=== PATIENT | female | born 1945 | race African-American/Black ===

== ENCOUNTER 2019-03-05 09:42 | Inpatient (IN) ==
[2019-03-05 10:23] LABS: URINE SOURCE CLEAN CATCH
[2019-03-05 10:41] LABS: BILIRUBIN URINE NEGATIVE (NEGATIVE); BLOOD URINE TRACE (NEGATIVE); COLOR YELLOW; GLUCOSE URINE NEGATIVE (NEGATIVE); KETONE URINE NEGATIVE (NEGATIVE); LEUKOCYTES URINE LARGE (NEGATIVE); NITRITE URINE POSITIVE (NEGATIVE); PROTEIN URINE 30 mg/dL (NEGATIVE); SP GRAVITY URINE 1.012; TURBIDITY URINE HAZY (CLEAR); UROBILINOGEN URINE NORMAL (NORMAL)
[2019-03-05 10:43] LABS: UR EPITHELIAL CELLS <10 /HPF (<10); URINE BACTERIA 4+ /HPF; URINE RBC <10 /HPF (<10); URINE WBC TNTC /HPF (<10)
[2019-03-05 11:09] LABS: BASO# 0.03 X1000 (0.0-0.2); BASO% 0.2 % (0.0-0.8); EOS# 0.06 X1000 (0.0-0.7); EOS% 0.5 % (0.0-10.0); HEMATOCRIT 37.6 % (37.0-47.0); HEMOGLOBIN 11.8 g/dL (12.0-16.0); IMM GRAN# 0.03 X1000 (0.0-0.04); IMM GRAN% 0.2 % (0.0-0.5); LYMPH# 0.58 X1000 (1.2-3.4); LYMPH% 4.5 % (20.5-51.1); MCH 28.9 PG (27-31); MCHC 31.4 g/dL (33-37); MCV 91.9 FL (81-99); MONO# 0.17 X1000 (0.11-0.59); MONO% 1.3 % (1.7-9.3); MPV 12.3 FL (7.4-10.4); NEUT# 11.89 X1000 (1.4-6.5); NEUT% 93.3 % (42.2-75.2); PLT 173 X1000 (130-400); RBC 4.09 XMIL (4.2-5.4); WBC 12.76 X1000 (4.8-10.8)
--- NOTE | 2019-03-05 11:28 | EKG Report ---
Test Performed on : 03/05/2019 09:55:40 AM Test Reason : altered mental status Blood Pressure : / mmHG Vent. Rate : 073 BPM Atrial Rate : 073 BPM P-R Int : 126 ms QRS Dur : 090 ms QT Int : 346 ms P-R-T Axes : 052 -22 007 degrees QTc Int : 381 ms Sinus rhythm. with marked sinus arrhythmia. Otherwise normal ECG When compared with ECG of 18-SEP-2013 05:28, QT has shortened Unconfirmed Result
[2019-03-05 11:39] LABS: AGAP 14; ALBUMIN 3.5 g/dL (3.5-5.0); ALKALINE PHOSPHATASE 77 U/L (32-104); AMYLASE 65 U/L (20-200); BUN 13 mg/dL (8-22); CALCIUM 8.8 mg/dL (8.8-10.2); CHLORIDE 108 mmol/L (98-107); COSMO 287; CREATININE 0.8 mg/dL (0.5-0.9); ESTIMATED GFR > 60; GLUCOSE 97 mg/dL (70-104); GOT 27 U/L (10-30); GPT 18 U/L (10-36); LIPASE 58 U/L (13-60); POTASSIUM 3.5 mmol/L (3.5-5.1); SODIUM 144 mmol/L (136-145); TCO2 22 mmol/L (25-35); TOTAL BILIRUBIN 0.41 mg/dL (0.20-1.00); TOTAL PROTEIN 6.9 g/dL (6.3-8.3)
--- NOTE | 2019-03-05 11:58 | Diag Imaging Result Doc PS360 ---
EXAM: CHEST-1 VIEW 03/05/2019 HISTORY: sepsis protocol TECHNIQUE: AP upright at 1142 COMMENT: There is cardiomegaly. There is minimal lingular atelectasis. Compared to 09/18/2013 there has been no significant change in the appearance of the chest. IMPRESSION: Minimal lingular atelectasis. Electronically signed by George Brunner 03/05/2019 11:56 AM
--- NOTE | 2019-03-05 12:06 | Diag Imaging Result Doc PS360 ---
CT HEAD W/O CONTRAST - 03/05/2019 INDICATION: altered mental status COMPARISON: 09/18/2013 FINDINGS: There is a prominent hypodensity in the left periventricular cerebral white matter. This has worsened since the prior exam and is likely chronic. Otherwise stable minimal periventricular white matter chronic microvascular disease. No intracranial mass or hemorrhage. The skull is intact. The sinuses are clear. There is dense vascular disease of the carotid siphons bilaterally. IMPRESSION: Clearly chronic and some age indeterminate deep cerebral white matter hypodensity. If further evaluation desired, then a brain MRI is recommended. This exam was performed using automated exposure control, adjustment of mA or kV according to patient size, and/or use of iterative reconstruction technique Electronically signed by Dorian Red 03/05/2019 12:03 PM
[2019-03-05] MEDS ORDERED: ROCEPHIN 1 GM in NS 50 ML IV ONE (12:13)
[2019-03-05] MEDS ORDERED: TYLENOL PO ONE (12:19)
--- NOTE | 2019-03-05 12:25 | PROVIDER DOCUMENTATION ---
This chart was entered by Anaid Lizama Scribe, acting as scribe for Arley Khna MD. HPI-General Adult - General Chief Complaint: Nausea/Vomiting Stated Complaint: AMS/ NAUSEA Time Seen by Provider: 03/05/19 09:53 Source: patient, EMS Allergies/Adverse Reactions: Patient Allergies Allergy/AdvReac Type Severity Reaction Status Date / Time No Known Allergies Allergy Verified 09/18/13 05:55 Home Medications: Home Medication List Medication Instructions Recorded Confirmed Last Taken Type ATORVAstatin [Lipitor] 10 mg PO HS #0 tablet 09/20/13 Unknown Rx Aspirin 325 mg PO DAILY #0 tablet 09/20/13 Unknown Rx LISINOpril [Prinivil] 20 mg PO DAILY #0 tablet 09/20/13 Unknown Rx Lisinopril 20 mg PO DAILY #0 tablet 09/20/13 Unknown Rx Metformin [Glucophage] 500 mg PO BID CC #0 tablet 09/20/13 Unknown Rx - History of Present Illness -Gen Adult Nature of Presenting Problems: 73 yof presents to the ed with c/o n/v and confusion this am. pt was brought to ed via ems and once seen in ed pt was a/o x3 and no distress. 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 pt is poor historian Location of Pain/Injury: reports: abdomen Quality of Pain: reports: cramping Severity: reports: moderate Onset/Duration: reports: this morning Timing: reports: gone now Context/Activities at Onset: reports: moderate activity Modifying Factors: improves with: nothing Associated Symptoms: reports: nausea, vomiting (x2), other (confusion). denies: back/neck pain, chest pain, cough, dizziness, headaches, shortness of breath Similar Symptoms Previously?: No Recently seen or treated by another doctor?: No Review of Systems - Adult - REVIEW OF SYSTEMS - ADULT ROS:: limited per condition (pt is poor historian) Constitutional: denies: chills, fever Eyes: reports: no symptoms reported Ears, Nose, Mouth & Throat: reports: no symptoms reported Cardiovascular: denies: chest pain, palpitations Respiratory: denies: cough, pleurisy, shortness of breath Gastrointestinal: reports: see HPI, abdominal pain, nausea, vomiting. denies: diarrhea Genitourinary: reports: no symptoms reported Musculoskeletal: denies: back pain, neck pain Integumentary: reports: no symptoms reported Neurological: reports: see HPI, slurred speech (baseline), other (mild confusion). denies: dizziness/vertigo, headache/migraines, syncope, tremors Psychiatric: reports: no symptoms reported Endocrine: reports: no symptoms reported Hematologic/Lymphatic: reports: no symptoms reported Allergic/Immunologic: reports: no symptoms reported All Other Systems: Reviewed and Negative Past History - Adult - PAST MEDICAL HISTORY-ADULT Review of Records: reports: Nursing Assessment Review, Medications Reviewed Major Childhood Illnesses: reports: denies history Cardiovascular: reports: HTN Respiratory: reports: denies history Gastrointestinal: reports: denies history Obstetrical/Gynecological: reports: denies history Genitourinary: reports: denies history Musculoskeletal: reports: denies history Hand Dominance: Right Handed Neurological: reports: CVA, stroke deficits (speech), TIA Endocrine/Immune: reports: Diabetes Diabetes Type: Type 2 Diabetes controlled by:: Diet Other Conditions: reports: denies history - PRIOR SURGERIES/PROCEDURES Surgical/Procedure History: reports: appendectomy, cholecystectomy, BTL - IMMUNIZATION STATUS Childhood Immunizations: See Nurse Assessment Flu Vaccine: See Nurse Assessment - FAMILY HISTORY Family History: reviewed, not pertinent - SOCIAL HISTORY Smoking: denies Substance Use: denies Living Situation: care facility Physical Exam-General - PHYSICAL EXAM-ADULT Initial Vital Signs Reviewed: Yes - CONSTITUTIONAL General Appearance: alert - EYES Eyes: PERRL/EOMI, pink conjunctivae - HEAD, EARS, NOSE, MOUTH & THROAT HENMT: moist mucous membranes - NECK Neck: non-tender, full range of motion, supple, normal inspection - RESPIRATORY Respiratory: chest non-tender, lungs clear, normal breath sounds, increased rate (26) - CARDIOVASCULAR Cardiovascular: normal peripheral pulses, no edema, tachycardia (103) - GASTROINTESTINAL (ABDOMEN) Abdominal Exam: normal bowel sounds, non tender, soft - LYMPHATIC Lymphatic: no adenopathy - MUSCULOSKELETAL Back Exam: normal inspection, no CVA tenderness, no vertebral tenderness Extremity: normal range of motion, non-tender, normal gait, normal inspection, no pedal edema, no calf tenderness, normal capillary refill - SKIN Integumentary: normal color, normal turgor, warm/dry - NEUROLOGIC Neurologic: grossly normal - PSYCHIATRIC Psych/Mental Status: normal mood/affect, oriented x 3 (but pt is poor historian) Progress - PLAN OF CARE/RESULTS Progress/Plan/Lab Results: Vital Signs - 8 hr 03/05/19 09:55 Temperature 98.8 F Pulse Rate 90 Respiratory Rate 23 Blood Pressure 141/76 O2 Sat by Pulse Oximetry 97 Laboratory Results - last 24 hr 03/05/19 09:53 POC Glucose 135 H Orders Category Date Time Status Nursing- Obtain EKG ONCE Care 03/05/19 10:[address] HEAD W/O CONTRAST [CT] Stat Exams 03/05/19 10:01 Ordered AMYLASE [CHEM] Stat Lab 03/05/19 10:01 Uncollected CBC WITH ELECTRONIC DIFF [HEME] Stat Lab 03/05/19 10:01 Uncollected COMPREHENSIVE METABOLIC PANEL [CHEM] Stat Lab 03/05/19 10:01 Uncollected LIPASE [CHEM] Stat Lab 03/05/19 10:01 Uncollected TROPONIN T Stat Lab 03/05/19 10:03 Uncollected URINALYSIS [URINALYSIS] Stat Lab 03/05/19 10:12 Ordered EKG [EKG] Stat Ther 03/05/19 10:01 Ordered Result Diagrams: 03/05/19 10:48 03/05/19 10:48 - REASSESSMENT Reassessment #1 Time Reassessed: 11:58 Status: unchanged Reassessment #2 Time Reassessed: 12:30 Status: worsening Reassessment Comment: pt now has a fever - EKG 1 Time of EKG reading by physician:: 09:55 EKG Read and Signed by:: Arley Khan EKG Interpretation (*Must complete 3 of following elements*): Normal Rate: 73 Rhythm: sinus rhythm with marked sinus arrhythmia [place]: normal QRS: normal MS Interval: normal ST Wave: normal - XRAY 1 XRAY: Bilateral XRAY Study: Chest Impression: See EMR Report (EXAM: CHEST-1 VIEW 03/05/2019 HISTORY: sepsis protocol TECHNIQUE: AP upright at 1142 COMMENT: There is cardiomegaly. There is minimal lingular atelectasis. Compared to 09/18/2013 there has been no significant change in the appearance of the chest. IMPRESSION: Minimal lingular atelectasis. Electronically signed by George Brunner 03/05/2019 11:56 AM 03/05/19 1156 Interpreting Physician: George Brunner MD Dictated Date/Time: 03/05/19 1155 cc: Arley Khan MD; Tomy Segovia MD) - CT/MRI 1 CT Study: Head Impression: See EMR Report (CT HEAD W/O CONTRAST - 03/05/2019 INDICATION: altered mental status COMPARISON: 09/18/2013 FINDINGS: There is a prominent hypodensity in the left periventricular cerebral white matter. This has worsened since the prior exam and is likely chronic. Otherwise stable minimal periv entricular white matter chronic microvascular disease. No intracranial mass or hemorrhage. The skull is intact. The sinuses are clear. There is dense vascular disease of the carotid siphons bilaterally. IMPRESSION: Clearly chronic and some age indeterminate deep cerebral white matter hypodensity. If further evaluation desired, then a brain MRI is recommended. This exam was performed using automated exposure control, adjustment of mA or kV according to patient size, and/or use of iterative reconstruction technique Electronically signed by Dorian Red 03/05/2019 12:03 PM 03/05/19 1203 Interpreting Physician: Dorian Red MD Dictated Date/Time: 03/05/19 1201 cc: Arley Pardo MD; Tomy Segovia MD) - CONSULTS/PCP/HOSPITALIST Notification #1 *Consult/PCP/Hospitalist*: hospitalist Time Discussed: 12:30 Consult Disposition: Admit Departure - Departure Date of Disposition Decision: 03/05/19 Time of Disposition Decision: 12:32 DIAGNOSIS: UTI (urinary tract infection), Altered mental status Disposition: ADMITTED INPATIENT 09 Certified Medical Emergency: Emergent Condition: Fair Referrals and Follow-Ups: Tomy Segovia MD [Primary Care Provider] - - Critical Care Note This patient required my direct & personal management of CC.: Yes Total Time (mins): 32 Critical Care Statement: This patient required my direct personal management to treat or rule out processes, the absence of which, could potentiallly result in sudden, clinically significant life or limb threatening deterioration. Attestation - Physician/ MADDI Attestation Patient care was provided by Advanced Practice Provider:: No The physician spent face to face time with patient:: Yes Advanced Practice Provider documentation review:: Supervising physician onsite and consulted in the evaluation and care of this patient. The physician did have a face to face encounter with the patient. This chart was documented by the indicated scribe, (Anaid Lizama Scribe) and accurately reflects the services I performed and decisions made by me, Arley Yang MD, as attested by the provider's signature.
[2019-03-05 12:34] LABS: INR 0.89; PROTIME 12.8 Seconds (11.0-16.0)
--- NOTE | 2019-03-05 13:53 | Diag Imaging Result Doc PS360 ---
EXAM: KNEE 3 VIEWS RIGHT 03/05/2019 HISTORY: r/o septic knee TECHNIQUE: Right knee three views COMMENT: There is narrowing of the lateral joint compartment and sclerosis and some irregularity of the articular surfaces. There is valgus deformity of the knee. There is marked patellofemoral arthropathy. There is a suprapatellar effusion. No evidence of erosion or periosteal reaction is present. There is subcutaneous edema over the lower leg. IMPRESSION: Osteoarthritis. Effusion. Soft tissue edema. Electronically signed by George Brunner 03/05/2019 1:51 PM
--- NOTE | 2019-03-05 14:41 | HISTORY AND PHYSICAL ---
PRIMARY CARE PROVIDER: Dr. Segovia. CHIEF COMPLAINT: Per family in the room, the patient was having am upset stomach this morning with complaint of a cough. HISTORY OF PRESENT ILLNESS: Ms. Martinez is a 73-year-old Afro-[place] female, who had a CVA several years ago. Her speech is still affected, but no other deficits. Hypertension, borderline diabetes. She checks her sugar twice a day, but does not take anything for them. She continues to work at [email or web address] per the daughter's report at the bedside. Her brother stated that she was complaining of stomach pain this morning. She took some Pepto-Bismol. She went to work at [email or web address]. Per their report, she continued to get off the line to go urinate. She was found vomiting in the bathroom. She felt feverish and was diaphoretic. She was brought into the ED where she was found to have a urinary tract infection. Her chest x-ray showed atelectasis. She was initiated on IV antibiotics. However, upon physical examination, her right knee is swollen and hot to the touch. We will check a knee x-ray to rule out any septic arthritis, along with a uric acid level for possible gout, currently pending her lactate level. The patient is sleepy in the room. She will wake up for a brief period of time to answer some questions. She does know her name and date of , and that she is in the hospital, and then she will fall back asleep. Per daughters at bedside, this is definitely not her norm. We will admit her to the medical telemetry floor. Continue with IV fluids and IV antibiotics. REVIEW OF SYSTEMS: A 14 point review of systems completely negative, except for those mentioned in HPI. The patient was hard to get information out of; most was gotten from the ER and daughters at bedside. 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 PAST SURGICAL HISTORY: 1. Tubal ligation. 2. Cholecystectomy. FAMILY HISTORY: Coronary artery disease and stroke. SOCIAL HISTORY: She lives alone. She continues to work at [email or web address]. No alcohol, tobacco, or illicit drug use. HOME MEDICATIONS: see med rec PHYSICAL EXAMINATION: VITAL SIGNS: Temperature is 101.5 degrees, heart rate 89, respirations 20, blood pressure 160/55, O2 94% on room air. GENERAL: Ms. Martinez is a 73-year-old female, who is lying on the stretcher in no acute distress. She is somewhat sleepy. She does arouse easily. She will briefly answer questions and drift off back to sleep. HEENT: Atraumatic, normocephalic. PERRL. NECK: Supple. Trachea midline. CARDIOVASCULAR: S1, S2 appreciated. No murmurs, gallops, rubs noted. RESPIRATORY: Lung sounds clear bilaterally. GI: Soft, nontender, nondistended. Positive bowel sounds 4 quadrants. EXTREMITIES: Shows a right swollen knee that is warm to the touch. No lower extremity edema. SKIN: Appears to be warm, dry, and intact. DIAGNOSTIC DATA: Head CT shows chronic and some age indeterminate deep cerebral white matter hypodensity. Further evaluation may be recommended to follow-up MRI. Chest x- ray: Minimal lingular atelectasis. Knee x-ray on the right is currently pending. LABORATORY DATA: White count 12, hemoglobin and hematocrit 11 and 37, platelet count is 173. Sodium 144, potassium 3.5. BUN 13, creatinine 0.8, blood glucose is 135. Troponin less than 0.010. Lactate is currently pending. Urinalysis: Too numerous to count WBCs, large leukocytes, positive nitrates. ASSESSMENT AND PLAN: 1. Metabolic encephalopathy secondary to urinary tract infection. We will continue with neuro checks. We will treat her underlying infection. 2. Urinary tract infection. We will await urine culture. Continue with intravenous antibiotics. 3. Rule out septic knee or gouty arthritis in the right knee. Currently pending uric acid and knee x-ray. 4. Hypertension. 5. Borderline diabetes. Per family report, she is not taking anything for her diabetes. However, her home medication record shows she takes metformin. We will check a hemoglobin A1c. 6. History of cerebrovascular accident in the past that affected her speech. No other deficits noted. 7. Further recommendation to follow physician evaluation, laboratory and diagnostic data. Dictated by KURT Rosenbaum for Saskia Tong MD cc: MD Tomy Chavez MD I performed a face to face encounter on the patient. I reviewed all labs and imaging on the patient. I agree with the H&P as dictated. is a 73 year old female with a history of DM type 2 and hypertension who presented to the ER with a chief complaint of weakness and lethargy. On exam, the patient was noted to be lethargic and unable to answer any questions. After further evaluation, the patient was noted to have a urinary tract infection. Blood and urine cultures have been obtained. Will start IV fluid hydration and start the patient on Rocephin. The patient also has a large effusion on her right knee. She has a history of routine steroid knee injections for arthritis. Will consult Orthopedic surgery to perform an arthrocentesis to rule out the possibility of a septic knee joint. RICHARD
[2019-03-05] MEDS ORDERED: ZOFRAN IV PRN (14:49)
[2019-03-05] MEDS: NS 1,000 ML IV SCH (16:08)
[2019-03-05] MEDS ORDERED: LIPITOR PO SCH (21:00)
[2019-03-05] MEDS ORDERED: NEURONTIN PO SCH (21:00)
[2019-03-05] MEDS ORDERED: PRAVACHOL PO SCH (21:00)
[2019-03-06] MEDS: NS 1,000 ML IV SCH ×2 (04:09→17:08)
[2019-03-06 05:35] LABS: BASO# 0.03 X1000 (0.0-0.2); BASO% 0.2 % (0.0-0.8); EOS# 0.08 X1000 (0.0-0.7); EOS% 0.6 % (0.0-10.0); HEMATOCRIT 30.7 % (37.0-47.0); HEMOGLOBIN 9.9 g/dL (12.0-16.0); IMM GRAN# 0.02 X1000 (0.0-0.04); IMM GRAN% 0.2 % (0.0-0.5); LYMPH# 1.36 X1000 (1.2-3.4); LYMPH% 10.5 % (20.5-51.1); MCH 29.5 PG (27-31); MCHC 32.2 g/dL (33-37); MCV 91.4 FL (81-99); MONO# 0.77 X1000 (0.11-0.59); MONO% 5.9 % (1.7-9.3); MPV 12.2 FL (7.4-10.4); NEUT# 10.74 X1000 (1.4-6.5); NEUT% 82.6 % (42.2-75.2); PLT 163 X1000 (130-400); RBC 3.36 XMIL (4.2-5.4); RDW 15.9 % (11.5-14.5)
[2019-03-06 05:57] LABS: AGAP 10; ALB/GLOB RATIO 1.2; ALKALINE PHOSPHATASE 95 U/L (32-104); BUN 13 mg/dL (8-22); CALCIUM 7.8 mg/dL (8.8-10.2); CHLORIDE 110 mmol/L (98-107); COSMO 284; CREATININE 0.9 mg/dL (0.5-0.9); ESTIMATED GFR > 60; GLUCOSE 85 mg/dL (70-104); GOT 143 U/L (10-30); GPT 135 U/L (10-36); MAGNESIUM 1.8 mg/dL (1.5-2.7); POTASSIUM 3.3 mmol/L (3.5-5.1); SODIUM 143 mmol/L (136-145); TCO2 23 mmol/L (25-35); TOTAL BILIRUBIN 0.35 mg/dL (0.20-1.00); TOTAL PROTEIN 5.5 g/dL (6.3-8.3)
[2019-03-06] MEDS ORDERED: KLOR-CON PO ONE (06:43)
[2019-03-06] MEDS: PRINIVIL PO SCH (09:38)
[2019-03-06] MEDS: LOVENOX SUBQ SCH (09:39)
[2019-03-06] MEDS: ASPIRIN EC PO SCH (09:39)
[2019-03-06] MEDS: NORVASC PO SCH (09:39)
[2019-03-06] MEDS: NEURONTIN PO SCH ×2 (10:17→21:15)
[2019-03-06] MEDS: GLUCOPHAGE PO SCH ×2 (10:17→17:07)
[2019-03-06] MEDS: ROCEPHIN 1 GM in NS 50 ML IV SCH (12:06)
--- NOTE | 2019-03-06 14:42 | PROGRESS NOTE ---
DATE: 03/06/2019 SUBJECTIVE: The patient is awake and alert. She states that she feels a lot better. OBJECTIVE: Vital Signs: Temperature 98.6 degrees, blood pressure 136/52, heart rate 67, respirations 23, O2 saturation 93% on room air. General: This is a chronically ill-appearing, elderly female, lying on the stretcher in no acute distress. Heart: S1, S2 normal. Regular rate and rhythm. Lungs: Clear to auscultation bilaterally. Abdomen: Positive bowel sounds. Soft, nontender, nondistended. Extremities: There is an effusion involving the right knee. It is swollen and warm to touch. Neurologic: The patient is alert and oriented x4. LABS: White blood cell count 13, hemoglobin 9.9, hematocrit 30, platelets 163. Sodium 143, potassium 3.3, chloride 110, CO2 23. BUN 13, creatinine 0.9, glucose 85, AST 143, ALT 135, albumin 3. ASSESSMENT AND PLAN: 1. Metabolic encephalopathy. Improved. The patient has a urinary tract infection which is being treated. We will continue to monitor closely. 2. Urinary tract infection. The urine culture is growing gram-negative rods. Continue with antibiotic therapy. Will await the final culture results. 3. Bacteremia secondary to gram-negative rods. We will continue with antibiotic therapy and follow up on the culture results. We will consult with Infectious Disease. 4. Right knee effusion. We will consult with Orthopedic Surgery for further recommendations. 5. Diabetes mellitus type 2. Continue on sliding scale insulin and metformin. 6. Diabetic neuropathy. Continue on Neurontin. 7. Deep vein thrombosis prophylaxis. Continue on Lovenox. cc: Saskia Tong MD
[2019-03-06 14:50] LABS: BODY FLUID SOURCE SYNOVIAL FLUID; WBC BF 1305 /cumm
[2019-03-06 15:13] LABS: MONOS 74 %; POLYS 26 %
--- NOTE | 2019-03-06 16:16 | ORTHOPAEDICS CONSULTATION ---
DATE: 03/06/2019 CHIEF COMPLAINT: Patient complains of right knee pain. HISTORY OF PRESENT ILLNESS: Ms. Martinez is a 73-year-old female who recently had swelling in her right knee. She reports the swelling comes and goes over the past couple of months. She reports an episode of vomiting in the bathroom, and she felt like she was having a fever and got hot and sweaty. She was brought to the emergency department where they found a urinary tract infection. Chest x-ray shows atelectasis. They started her on IV antibiotics and consult to orthopedics for her right knee swelling. REVIEW OF SYSTEMS: Ten-point review of systems performed. Pertinent positives listed in HPI. PAST MEDICAL HISTORY: Hypertension, CVA, borderline diabetes, DJD of the right knee. PAST SURGICAL HISTORY: Tubal ligation, cholecystectomy. FAMILY HISTORY: CAD and stroke. SOCIAL HISTORY: She lives alone and continues to work. She denies alcohol, tobacco, or drug use. PHYSICAL EXAMINATION: Vital Signs: Pulse rate 75, respiratory rate 20, blood pressure 155/63, oxygen saturation 96%. Previous temperature was 101.5 degrees. General: Patient is awake, alert, and lying in bed comfortably. She is not in any acute distress. HEENT: Head is atraumatic, normocephalic. Neck: Supple. Cardiovascular: Regular rate and rhythm. Chest: There is equal chest expansion rise and fall. GI: Abdomen is soft, nontender. Extremities: Right lower extremity. Right knee has +2 effusion that is warm to the touch. There is negative Homans sign. There is good range of motion of right knee. There is some medial joint line tenderness. There are good pedal pulses. There is no redness at the time. DIAGNOSTICS: X-ray of the right knee shows DJD of the knee with effusion but is otherwise normal. LABORATORY DATA: White blood cells 13, red blood cell 3.36, hemoglobin 9.9, hematocrit 30.7, platelets 163,000. INR 0.9. Sodium 143, potassium 3.3, chloride 110, BUN 13, creatinine 0.9, glucose 85. Previous uric acid is 4.9. Liver enzymes: AST 143, ALT 135. Urine shows positive urinary tract infection. ASSESSMENT: Degenerative joint disease of the right knee with effusion. PLAN: We have aspirated roughly 50 mL of synovial clear fluid. We will go ahead and send it off to lab since she has had a fever and high white count. We will await the results and treat accordingly. Dictated by KURT Stephens for Conor Summers MD cc: KURT Stephens MD MTDD
[2019-03-06] MEDS: TYLENOL PO PRN (21:14)
[2019-03-07 07:44] LABS: BASO# 0.03 X1000 (0.0-0.2); BASO% 0.3 % (0.0-0.8); EOS# 0.08 X1000 (0.0-0.7); EOS% 0.8 % (0.0-10.0); HEMATOCRIT 37.8 % (37.0-47.0); HEMOGLOBIN 12.1 g/dL (12.0-16.0); LYMPH# 1.13 X1000 (1.2-3.4); LYMPH% 11.3 % (20.5-51.1); MCH 29.4 PG (27-31); MONO# 0.66 X1000 (0.11-0.59); MONO% 6.6 % (1.7-9.3); MPV 12.3 FL (7.4-10.4); NEUT# 8.14 X1000 (1.4-6.5); PLT 149 X1000 (130-400); RBC 4.11 XMIL (4.2-5.4); WBC 10.04 X1000 (4.8-10.8)
[2019-03-07 08:19] LABS: AGAP 12; ALB/GLOB RATIO 0.8; ALBUMIN 2.9 g/dL (3.5-5.0); ALKALINE PHOSPHATASE 90 U/L (32-104); BUN 7 mg/dL (8-22); CALCIUM 8.6 mg/dL (8.8-10.2); CHLORIDE 110 mmol/L (98-107); COSMO 285; CREATININE 0.6 mg/dL (0.5-0.9); ESTIMATED GFR > 60; GLUCOSE 135 mg/dL (70-104); GOT 46 U/L (10-30); GPT 85 U/L (10-36); SODIUM 143 mmol/L (136-145); TCO2 21 mmol/L (25-35); TOTAL BILIRUBIN 0.27 mg/dL (0.20-1.00); TOTAL PROTEIN 6.6 g/dL (6.3-8.3)
[2019-03-07] MEDS: NORVASC PO SCH (09:56)
[2019-03-07] MEDS: PRINIVIL PO SCH (09:56)
[2019-03-07] MEDS: ASPIRIN EC PO SCH (09:56)
[2019-03-07] MEDS: NEURONTIN PO SCH ×2 (09:56→21:06)
[2019-03-07] MEDS: LOVENOX SUBQ SCH (09:56)
[2019-03-07] MEDS: GLUCOPHAGE PO SCH ×2 (09:57→17:44)
[2019-03-07 11:10] LABS: HEPATITIS PROFILE ACUTE SEE COMMENTS
--- NOTE | 2019-03-07 11:23 | ORTHOPAEDICS PROGRESS NOTE ---
DATE: 03/07/2019 SUBJECTIVE: The patient is a 73-year-old female who is currently resting comfortably. She was admitted to the hospital yesterday for a UTI. She also had swelling and discomfort in her right knee, as well as an effusion. Orthopedic consultation was requested to rule out septic joint. The patient does have a history of arthritis, and sees Dr. Giles in the office, and has received periodic injections for underlying osteoarthritis. OBJECTIVE: The patient's right knee contusion with an effusion. She is able to actively flex and extend her knee. Compartments are soft. She has less discomfort today. LABORATORY DATA: Her Gram stain was negative. Cultures are pending. IMPRESSION: Right knee pain with effusion with underlying osteoarthritis. PLAN: At this point, will await the culture results to rule out septic joint. Clinical suspicion is low for a septic joint at this point. If she has negative cultures, would consider intra- articular corticosteroid injections. The patient understands, and all questions were answered. cc: Conor Summers MD
[2019-03-07] MEDS: NS 1,000 ML IV SCH (11:54)
[2019-03-07] MEDS: ROCEPHIN 1 GM in NS 50 ML IV SCH (11:54)
--- NOTE | 2019-03-07 12:50 | PROGRESS NOTE ---
DATE: 03/07/2019 SUBJECTIVE: The patient is feeling better. Still complains of some right knee pain, but has improved. OBJECTIVE: Vital signs: Temperature is 97.9 degrees, heart rate 72, respirations 16, blood pressure 149/49, and O2 is 96%. General: Ms. Martinez is a pleasant 73-year-old female who is lying on the bed in no acute distress. Daughter is at bedside. HEENT: Atraumatic and normocephalic. PERRLA. Neck: Supple. Trachea midline. CV: S1, S2 appreciated. No murmurs, gallops, or rubs noted. Lungs: Sounds are clear bilaterally. Abdomen: Soft, nontender, and nondistended. Positive bowel sounds 4 quadrants. Extremities: Improvement to the effusion to her right knee. Neurologic: No focal deficits noted. DIAGNOSTIC DATA: None. PROCEDURES: She had an aspiration of roughly 50 mL of synovial clear fluid performed by Dr. Summers currently pending microbiology. LABORATORY DATA: White count 10, hemoglobin and hematocrit 12 and 37, and platelet count 149,000. Chemistry: Sodium 143, potassium 4.0, BUN 7, creatinine 0.6. Blood glucose 135, AST 46, and ALT 85. Hepatitis panel nonreactive. ASSESSMENT AND PLAN: 1. Metabolic encephalopathy secondary to UTI and bacteremia improved. Resolved. 2. Escherichia coli urinary tract infection. We will continue with IV antibiotics. 3. Bacteremia secondary to E.coli. We will continue with IV antibiotic therapy. 4. Right knee effusion. Orthopedics did a joint aspiration where they removed 50 mL of synovial fluid that was clear. Continue with PT. 5. Elevated liver function tests. They are currently trending down. Her hepatitis profile was nonreactive. 6. Diabetes mellitus type 2. We will continue her sliding scale and metformin. 7. Diabetic neuropathy. Continue Neurontin. 8. DVT prophylaxis on Lovenox. 9. Further recommendations to follow physician evaluation, laboratory and diagnostic data. 10. Disposition: Pending final cultures. Dictated by KURT Rosenbaum for Saskia Tong MD cc: Saskia Tong MD I performed a face to face encounter on the patient. I reviewed all labs on the patient. I agree with the progress note as dictated. The patient is awake and oriented x 4. She is sitting up in the chair. The blood and urine cultures are growing E.coli which is pansensitive. Will continue on IV rocephin. PT is also working with the patient on strength. MTDD
[2019-03-08 07:34] LABS: BASO# 0.03 X1000 (0.0-0.2); BASO% 0.4 % (0.0-0.8); EOS# 0.13 X1000 (0.0-0.7); EOS% 1.9 % (0.0-10.0); HEMATOCRIT 34.5 % (37.0-47.0); HEMOGLOBIN 11.2 g/dL (12.0-16.0); IMM GRAN# 0.02 X1000 (0.0-0.04); IMM GRAN% 0.3 % (0.0-0.5); LYMPH# 1.53 X1000 (1.2-3.4); LYMPH% 22.5 % (20.5-51.1); MCH 29.2 PG (27-31); MCHC 32.5 g/dL (33-37); MCV 90.1 FL (81-99); MONO% 8.8 % (1.7-9.3); MPV 12.1 FL (7.4-10.4); NEUT# 4.48 X1000 (1.4-6.5); NEUT% 66.1 % (42.2-75.2); PLT 168 X1000 (130-400); RBC 3.83 XMIL (4.2-5.4); RDW 15.1 % (11.5-14.5); WBC 6.79 X1000 (4.8-10.8)
[2019-03-08 07:57] LABS: AGAP 13; ALB/GLOB RATIO 0.9; ALKALINE PHOSPHATASE 76 U/L (32-104); BUN 5 mg/dL (8-22); CALCIUM 8.1 mg/dL (8.8-10.2); CHLORIDE 107 mmol/L (98-107); COSMO 280; CREATININE 0.6 mg/dL (0.5-0.9); ESTIMATED GFR > 60; GLUCOSE 91 mg/dL (70-104); GOT 21 U/L (10-30); GPT 58 U/L (10-36); POTASSIUM 3.4 mmol/L (3.5-5.1); SODIUM 142 mmol/L (136-145); TCO2 22 mmol/L (25-35); TOTAL BILIRUBIN 0.23 mg/dL (0.20-1.00); TOTAL PROTEIN 6.2 g/dL (6.3-8.3)
[2019-03-08] MEDS: GLUCOPHAGE PO SCH ×2 (10:08→18:09)
[2019-03-08] MEDS: LOVENOX SUBQ SCH (10:08)
[2019-03-08] MEDS: ASPIRIN EC PO SCH (10:08)
[2019-03-08] MEDS: PRINIVIL PO SCH (10:08)
[2019-03-08] MEDS: NEURONTIN PO SCH ×2 (10:08→20:01)
[2019-03-08] MEDS: NORVASC PO SCH (10:08)
--- NOTE | 2019-03-08 12:17 | PROGRESS NOTE ---
DATE: 03/08/2019 SUBJECTIVE: The patient is resting comfortably in bed. No acute events noted overnight. She states that she feels fine. She would like to go home. OBJECTIVE: Vital Signs: Temperature 97.9 degrees, blood pressure 155/64, heart rate 66, respirations 23, and O2 saturation 98% on room air. General: This is an elderly female sitting at the edge of the bed in no acute distress. Heart: S1, S2 normal. Regular rate and rhythm. Lungs: Clear to auscultation bilaterally. No wheezing. No rales. No rhonchi. Abdomen: Positive bowel sounds. Soft, nontender, nondistended. Extremities: No edema. No cyanosis. Neurologic: The patient is alert and oriented x3. LABORATORY: Hemoglobin 11, hematocrit 34, and platelets 168,000. Sodium 142, potassium 3.4, chloride 107, CO2 22, BUN 5, creatinine 0.6, glucose 108, and albumin 3. ASSESSMENT AND PLAN: 1. Metabolic encephalopathy. Resolved. 2. Urinary tract infection secondary to Escherichia coli. Continue with antibiotic therapy. 3. Bacteremia secondary to Escherichia coli. Repeat blood cultures are currently pending. Continue with antibiotic therapy. We will consult ID for further recommendations regarding length of antibiotic therapy. 4. Right knee effusion. Improved. Continue with physical therapy. 5. Diabetes mellitus type 2. Continue on metformin. 6. Diabetic neuropathy. Continue on Neurontin. 7. Deep vein thrombosis prophylaxis. Continue on Lovenox. 8. Disposition. We will plan to discharge the patient home once cleared by ID. cc: MD RICHARD Chavez
--- NOTE | 2019-03-08 13:55 | ORTHOPAEDICS PROGRESS NOTE ---
DATE: 03/08/2019 SUBJECTIVE: The patient is a pleasant 73-year-old female who was admitted to the hospital with metabolic encephalopathy secondary to UTI bacteremia. She underwent aspiration of a knee to rule out a septic knee the culture results were negative. She is feeling better with regards to her knee. PHYSICAL EXAMINATION: The patient's right knee does have mild effusion. She has good range of motion of the knees, is able to actively flex and extend her knee. compartments are soft. There is no increased warmth or erythema. She has some tenderness palpation along the joint line. LABS: WBC 10.04, hemoglobin is 12.1, hematocrit is 37.8. Platelets 149,000. Culture of synovial fluid of the right knee was negative. IMPRESSION: Osteoarthritis right knee. PLAN: Discussed treatment options with the patient. At this time she says her pain has improved and she is doing well. We will treat her symptomatically at this time. She was instructed to follow up with Dr. Giles who she sees in the office for longstanding arthritis for knee in the future if she has recurrent pain and discomfort. All of her questions were answered. She is stable from an orthopedic standpoint. We will be available if needed. cc: Conor Summers MD
[2019-03-08] MEDS: ROCEPHIN 1 GM in NS 50 ML IV SCH (15:18)
[2019-03-09 08:08] LABS: HEMATOCRIT 37.1 % (37.0-47.0); HEMOGLOBIN 11.9 g/dL (12.0-16.0); MCH 29.4 PG (27-31); MCHC 32.1 g/dL (33-37); MCV 91.6 FL (81-99); MPV 12.1 FL (7.4-10.4); RBC 4.05 XMIL (4.2-5.4); RDW 15.1 % (11.5-14.5); WBC 5.86 X1000 (4.8-10.8)
[2019-03-09 08:33] LABS: AGAP 13; BUN 5 mg/dL (8-22); CALCIUM 8.8 mg/dL (8.8-10.2); CHLORIDE 108 mmol/L (98-107); COSMO 283; CREATININE 0.7 mg/dL (0.5-0.9); ESTIMATED GFR > 60; GLUCOSE 85 mg/dL (70-104); POTASSIUM 3.5 mmol/L (3.5-5.1); SODIUM 144 mmol/L (136-145); TCO2 23 mmol/L (25-35)
[2019-03-09] MEDS: NEURONTIN PO SCH ×3 (09:08→22:26)
[2019-03-09] MEDS: LOVENOX SUBQ SCH (09:08)
[2019-03-09] MEDS: GLUCOPHAGE PO SCH ×2 (09:08→17:22)
[2019-03-09] MEDS: ASPIRIN EC PO SCH (09:08)
[2019-03-09] MEDS: NORVASC PO SCH (09:08)
[2019-03-09] MEDS: PRINIVIL PO SCH (09:08)
[2019-03-09] MEDS ORDERED: VITAMIN D PO SCH (11:45)
--- NOTE | 2019-03-09 14:15 | Diag Imaging Result Doc PS360 ---
KNEE 3 VIEWS RIGHT - 03/09/2019 INDICATION: swelling and pain with ambulation TECHNIQUE: Three views COMPARISON: 03/05/2019 FINDINGS: There is no change from prior. IMPRESSION: No change from prior. Electronically signed by Dorian Red 03/09/2019 2:13 PM
[2019-03-09] MEDS: ROCEPHIN 1 GM in NS 50 ML IV SCH (15:17)
[2019-03-09] MEDS ORDERED: SOLU-MEDROL IV ONE (16:31)
[2019-03-09] MEDS ORDERED: MOTRIN PO ONE (16:33)
--- NOTE | 2019-03-09 19:27 | PROGRESS NOTE ---
DATE: 03/09/2019 SUBJECTIVE: The patient is resting comfortably. She complains of some pain and swelling in her right knee, but otherwise states that she feels fine. OBJECTIVE: Vital signs: Temperature 97.9 degrees, blood pressure 133/64, heart rate 81, respirations 19, O2 saturation 98% on room air.General: This is a chronically ill-appearing elderly female sitting up in a chair in no acute distress. Heart: S1, S2 normal. Regular rate and rhythm. Lungs: Equal air entry bilaterally. No wheezing. No rales. No rhonchi. Abdomen: Positive bowel sounds. Soft, nontender, nondistended. Extremities: No edema, no cyanosis. No calf tenderness. Neurologic: The patient is alert and oriented x3. No focal neurologic deficits noted. LABORATORY DATA: White blood cell count 5.8, hemoglobin 11, hematocrit 37, platelets 180,000. Sodium 144, potassium 3.5, chloride 108, CO2 is 23, BUN 5, creatinine 0.7, glucose 117. ASSESSMENT AND PLAN: 1. Metabolic encephalopathy. Resolved. 2. Urinary tract infection secondary to Escherichia coli. Continue with antibiotic therapy. 3. Bacteremia secondary to Escherichia coli. Repeat blood cultures remain negative. Continue with antibiotic therapy. 4. Right knee pseudogout. We will start the patient on p.r.n. ibuprofen and we will also give the patient a dose of steroid to help with the inflammation in the knee. 5. Diabetes mellitus type 2. Continue on metformin. 6. Diabetic neuropathy. Continue on Neurontin. 7. Deep vein thrombosis prophylaxis. Continue on Lovenox. 8. Disposition. The patient will be discharged home once medically stable. cc: Saskia Tong MD
[2019-03-09] MEDS: TYLENOL PO PRN (19:38)
--- NOTE | 2019-03-09 21:51 | INFECTIOUS DISEASE CONSULT REP ---
DATE: 03/09/2019 The patient was unable to provide a history and physical for me. The information I have on the patient comes mostly from the information in the computer about the patient. CONCLUSION: The patient has an E coli urinary tract infection with an associated E coli bacteremia. RECOMMENDATIONS: I agree treating the patient with Rocephin in the hospital. I have gone ahead and discontinued it and tomorrow the patient will start on Levaquin 500 mg daily. I plan to treat the patient for 12 more days to complete a 14 day treatment 1st with Rocephin and then later with Levaquin of the patient's E coli urinary tract infection and bacteremia. My plan is to have the patient come back to my office in approximately 2 weeks at which time we will repeat her urine culture. Also I suggest now obtaining a renal ultrasound to see if there is any abscess present or obstruction and also to request that a postvoid residual urine be obtained to see if the patient fully empties her bladder. The patient's lab studies show a creatinine of 0.7, an ALT of 58, CBC with a white count of 5860, hemoglobin 11.6, platelet count is 180,000. The patient had a right knee swelling. The knee was aspirated and it had synovial fluid with a white blood cell count of 1305, crystals were seen in the synovial fluid. The crystals are characteristic of pseudogout. The patient had a culture from the knee also and the culture is negative. Hepatitis panel is nonreactive. Initially blood and urine culture grew E coli. Repeat blood cultures are sterile. X-ray of the right knee showed osteoarthritis and an effusion as well as soft tissue edema. Chest x-ray shows minimal lingular atelectasis. REVIEW OF SYSTEMS: I was unable to obtain this from the patient. MEDICAL DISEASES: Hyperlipidemia PAST MEDICAL HISTORY: Positive for diabetes mellitus, hypertension, and stroke. PAST SURGICAL HISTORY: Positive for tubal ligation, cholecystectomy, and labor and delivery. FAMILY HISTORY: Positive for coronary artery disease and stroke. SOCIAL HISTORY: The patient lives alone. She works at [employer]. She does not smoke cigarettes, drink alcoholic beverages or abuse drugs. ALLERGIES: Her chart lists no known drug allergies. HOME MEDICATIONS: At home include amlodipine, Ecotrin, gabapentin, Levaquin, lisinopril, metformin, and pravastatin. PHYSICAL EXAMINATION: Vital Signs: Temperature is 97.9 degrees, pulse 81, respirations 19, blood pressure 133/64. The patient is 4 feet 11 inches tall, weighs 144 pounds. General: This is a fairly healthy-appearing, elderly female. She is in no acute distress. Head, eyes, ears, nose, and throat: She can hear my spoken words and see near objects. She does not have a white coating on her tongue. Neck: She does not have any pain when she moves her head. Lungs: Clear to auscultation. Cardiovascular: Heart rate is irregular. Abdomen: Abdomen and flanks soft and nontender. Neurologic: The patient is awake. She can move her extremities. There is no tremor. Her memory as regarding her medical history was decreased. Integument: No rash noted. Thank you for the consult. cc: Oleg Lehman MD MTDD
[2019-03-10 08:18] LABS: AGAP 15; CHLORIDE 104 mmol/L (98-107); GLUCOSE 116 mg/dL (70-104); POTASSIUM 3.9 mmol/L (3.5-5.1); SODIUM 140 mmol/L (136-145); TCO2 21 mmol/L (25-35)
[2019-03-10 08:19] LABS: BUN 13 mg/dL (8-22); CALCIUM 8.6 mg/dL (8.8-10.2); COSMO 280; CREATININE 0.7 mg/dL (0.5-0.9); ESTIMATED GFR > 60
[2019-03-10] MEDS ORDERED: LEVAQUIN PO SCH (09:00)
[2019-03-10] MEDS: ASPIRIN EC PO SCH (09:21)
[2019-03-10] MEDS: GLUCOPHAGE PO SCH ×2 (09:21→17:25)
[2019-03-10] MEDS: NEURONTIN PO SCH (09:21)
[2019-03-10] MEDS: PRINIVIL PO SCH (09:22)
[2019-03-10] MEDS: NORVASC PO SCH (09:22)
[2019-03-10] MEDS: LOVENOX SUBQ SCH (16:00)
--- NOTE | 2019-03-10 17:17 | Diag Imaging Result Doc PS360 ---
US RENAL 2 (RETROPER) COMPLETE - 03/10/2019 INDICATION: Urinary tract infection TECHNIQUE: COMPARISON: CT 10/11/2012 FINDINGS: There are moderate bilateral peripelvic cysts stable from prior. This give the appearance of hydronephrosis that is benign. Renal sizes remain normal. The right kidney measures 10.2 x 4.1 x 4.2 cm. The left kidney measures 10.9 x 4.7 x 5.3 cm. Prevoid urinary bladder volume is 330 mL. Post void is 24 mL. IMPRESSION: 1. Probable peripelvic cysts of both kidneys. No acute abnormality. 2. Minimal postvoid residual volume, 24 mL. Electronically signed by Dorian Red 03/10/2019 5:15 PM
[2019-03-10 17:26] VITALS: BP 147/49
--- NOTE | 2019-03-10 20:46 | DISCHARGE SUMMARY ---
ADMISSION DATE: 03/05/2019 DISCHARGE DATE: 03/10/2019 FINAL DISCHARGE DIAGNOSIS: 1. Metabolic encephalopathy. 2. Urinary tract infection secondary to Escherichia coli. 3. Bacteremia secondary to Escherichia coli. 4. Pseudogout of the right knee. 5. Diabetes mellitus type 2. 6. Diabetic neuropathy. CONSULTATIONS: 1. Orthopedic consultation with Dr. Summers. 2. ID consultation with Dr. Lehman. IMAGIN. Head CT performed on 03/05/2019 that revealed chronic deep cerebral white matter hypodensity. 2. Portable chest x-ray performed on 03/05/2019 that revealed minimal lingular atelectasis. 3. Knee x-ray which revealed an effusion and soft tissue edema. 4. Renal ultrasound which revealed linda pelvic cysts of both kidneys. No acute abnormality. PROCEDURES: Arthrocentesis. HOSPITAL COURSE: Ms Martinez is a 73-year-old female with a history of hypertension and diabetes who presented to the ER with confusion. Upon arrival to the ER head CT was done that was noted to be unremarkable. A urinalysis was then performed which revealed a urinary tract infection. Also the patient was noted to have a white blood cell count of 12.7. Blood cultures and urine culture were obtained and patient was started on IV fluids and antibiotic therapy. The patient was admitted to the hospitalist service. The patient was also noted to have swelling involving her right knee so Orthopedic Surgery was consulted to perform an arthrocentesis to analyze the fluid from the patient's knee. With initiation of antibiotics and fluids the patient's mental status improved quickly. An arthrocentesis of the right knee was performed and was negative for infection however it did reveal pseudogout was present. The patient was treated with ibuprofen and steroid therapy. Ultimately the blood and urine cultures both grew out E coli. The patient was seen by Dr. Lehman who transitioned the patient to oral Levaquin therapy. Dr. Lehman has recommended that the patient complete 12 more days of Levaquin therapy and he will see the patient in 2 weeks in his office to repeat the urine culture and urinalysis. The patient is medically stable for discharge home at this time. DISCHARGE MEDICATIONS: 1. Levaquin 500 mg p.o. daily for 12 days. 2. Medrol Dosepak use as directed. 3. Vitamin D2 50,000 units oral every Monday. 4. Lisinopril 40 mg p.o. daily. 5. Metformin 500 mg p.o. twice a day. 6. Pravastatin 40 mg p.o. at bedtime. 7. Amlodipine 5 mg p.o. daily. 8. Gabapentin 300 mg oral twice a day. 9. Aspirin 81 mg p.o. daily. DISCHARGE DIET: 1800 ADA diet. ACTIVITY: As tolerated. FOLLOWUP INSTRUCTIONS: The patient will need to follow up with Dr. Oleg Lehman in 2 weeks. The patient will need to follow up with her primary care physician in 1 to 2 weeks. cc: Tomy Segovia MD
== END 2019-03-10 18:18 | disposition home or self-care (01) | DRG 689 ==
LOC: ED 09:42 → EDIPHOLD 14:25 → 3N 03-06 13:47
PROVIDERS: ATTEND Internal Medicine
CPT/HCPCS: 70450; 71010; 71045; 73562; 76770; 80048; 80053; 80074; 81001; 82150; 82306; 82550; 82948; 83605; 83690; 83735; 84484; 84550; 85025; 85027; 85610; 85730; 87040; 87070; 87077; 87088; 87186; 87205; 89051; 93005; 96365; 96366; 96372; 97116; 97162; 97165; 97530; 99285; A9270; J0696; J1650; J2920; J7030; XXXXX

== ENCOUNTER 2019-05-20 09:11 | Observation (INO) ==
--- NOTE | 2019-05-15 08:31 | EKG Report ---
Test Performed on : 05/15/2019 08:12:50 AM Test Reason : PAT Blood Pressure : / mmHG Vent. Rate : 063 BPM Atrial Rate : 063 BPM P-R Int : 130 ms QRS Dur : 098 ms QT Int : 412 ms P-R-T Axes : 059 -08 013 degrees QTc Int : 421 ms Normal sinus rhythm. Normal ECG When compared with ECG of 05-MAR-2019 09:55, No significant change was found Confirmed by Maddie San MD ([id number]) on 05/19/2019 9:29:57 PM
[2019-05-15 08:41] LABS: URINE SOURCE CLEAN CATCH
[2019-05-15 08:57] LABS: BASO# 0.03 X1000 (0.0-0.2); BASO% 0.4 % (0.0-0.8); EOS# 0.22 X1000 (0.0-0.7); HEMATOCRIT 40.8 % (37.0-47.0); HEMOGLOBIN 12.8 g/dL (12.0-16.0); LYMPH# 1.76 X1000 (1.2-3.4); LYMPH% 23.8 % (20.5-51.1); MCH 28.7 PG (27-31); MCHC 31.4 g/dL (33-37); MCV 91.5 FL (81-99); MONO# 0.45 X1000 (0.11-0.59); MONO% 6.1 % (1.7-9.3); MPV 12.4 FL (7.4-10.4); NEUT# 4.94 X1000 (1.4-6.5); NEUT% 66.7 % (42.2-75.2); PLT 156 X1000 (130-400); RBC 4.46 XMIL (4.2-5.4); RDW 15.7 % (11.5-14.5)
[2019-05-15 09:12] LABS: COLOR YELLOW
[2019-05-15 09:13] LABS: BILIRUBIN URINE NEGATIVE (NEGATIVE); BLOOD URINE NEGATIVE (NEGATIVE); GLUCOSE URINE NEGATIVE (NEGATIVE); KETONE URINE NEGATIVE (NEGATIVE); LEUKOCYTES URINE NEGATIVE (NEGATIVE); NITRITE URINE NEGATIVE (NEGATIVE); PH URINE 6.5; PROTEIN URINE NEGATIVE (NEGATIVE); SP GRAVITY URINE 1.017; TURBIDITY URINE CLEAR (CLEAR); UROBILINOGEN URINE NORMAL (NORMAL)
[2019-05-15 09:15] LABS: UR EPITHELIAL CELLS <10 /HPF (<10); URINE BACTERIA NEGATIVE /HPF; URINE RBC <10 /HPF (<10); URINE WBC <10 /HPF (<10)
[2019-05-15 09:30] LABS: HEMOGLOBIN A1C 5.7 % (4.8-6.0)
[2019-05-15 09:33] LABS: AGAP 11; ALBUMIN 4.2 g/dL (3.5-5.0); BUN 16 mg/dL (8-22); CALCIUM 9.5 mg/dL (8.8-10.2); CHLORIDE 105 mmol/L (98-107); COSMO 283; CREATININE 0.9 mg/dL (0.5-0.9); ESTIMATED GFR > 60; GLUCOSE 71 mg/dL (70-104); POTASSIUM 3.9 mmol/L (3.5-5.1); SODIUM 142 mmol/L (136-145); TCO2 26 mmol/L (25-35)
[2019-05-15 10:03] LABS: INR 0.95; PROTIME 12.8 Seconds (11.0-16.0); PTT 30.1 Seconds (22.3-41.8)
[2019-05-20] MEDS ORDERED: XYLOCAINE-MPF 2% ONE (09:36)
[2019-05-20] MEDS ORDERED: DIPRIVAN 1% ONE ×4 (09:36→12:59)
[2019-05-20] MEDS ORDERED: CELEBREX ONE (09:48)
[2019-05-20] MEDS ORDERED: REGLAN ONE (09:48)
[2019-05-20] MEDS ORDERED: KEFZOL 1 GM/D5W 1 GM/50 ML IVPB ONE (09:48)
[2019-05-20] MEDS ORDERED: PEPCID ONE (09:48)
[2019-05-20] MEDS ORDERED: COLACE ONE (09:48)
[2019-05-20] MEDS ORDERED: LYRICA ONE (09:48)
[2019-05-20] MEDS ORDERED: LR 1,000 ML ONE (09:48)
[2019-05-20] MEDS ORDERED: DILAUDID ONE (10:02)
[2019-05-20] MEDS ORDERED: TORADOL ONE (10:27)
[2019-05-20] MEDS ORDERED: VANCOMYCIN ONE (10:27)
[2019-05-20] MEDS ORDERED: SODIUM CHLORIDE 0.9% ONE (10:27)
[2019-05-20] MEDS ORDERED: SENSORCAINE 0.5%-EPI 1:200,000 ONE (10:27)
[2019-05-20] MEDS ORDERED: DURAMORPH ONE (10:27)
[2019-05-20] MEDS ORDERED: EXPAREL 1.3% ONE (10:28)
[2019-05-20] MEDS ORDERED: NEOSPORIN G.U. IRRIGANT ONE (10:28)
[2019-05-20] MEDS ORDERED: FENTANYL ONE ×2 (10:55→12:52)
[2019-05-20] MEDS ORDERED: EPHEDRINE ONE (11:12)
[2019-05-20] MEDS ORDERED: ROBINUL ONE (11:12)
[2019-05-20] MEDS: CYKLOKAPRON 1,000 MG/NS 2,000 MG/200 ML IVPB ONE ×2 (11:25→12:55)
[2019-05-20 11:45] LABS: URINE SOURCE CATH
[2019-05-20 11:50] LABS: BILIRUBIN URINE NEGATIVE (NEGATIVE); BLOOD URINE NEGATIVE (NEGATIVE); COLOR STRAW; GLUCOSE URINE NEGATIVE (NEGATIVE); KETONE URINE NEGATIVE (NEGATIVE); LEUKOCYTES URINE NEGATIVE (NEGATIVE); NITRITE URINE NEGATIVE (NEGATIVE); PROTEIN URINE NEGATIVE (NEGATIVE); TURBIDITY URINE CLEAR (CLEAR); UR EPITHELIAL CELLS <10 /HPF (<10); URINE BACTERIA NEGATIVE /HPF; URINE RBC <10 /HPF (<10); URINE WBC <10 /HPF (<10); UROBILINOGEN URINE NORMAL (NORMAL)
[2019-05-20] MEDS ORDERED: OFIRMEV 1000 MG/ISOTONIC SOLN 1,000 MG/100 ML BOTTLE ONE (13:26)
--- NOTE | 2019-05-20 13:32 | OPERATIVE NOTE ---
PROCEDURE DATE: 05/20/2019 PREOPERATIVE DIAGNOSIS: Right knee degenerative joint disease. POSTOP DIAGNOSIS: Right knee degenerative joint disease. PROCEDURE: Right total knee arthroplasty using a [employer] orthopedic size 4 femoral component, size 5 tibial base plate, a 16 mm articular insert and a 35 mm patellar component. ANESTHESIA: Spinal. SURGEON: Carroll Giles MD. CIGARETTE CATCHER: KURT Stephens was present throughout the case whose assistance was necessary for successful completion of the case. BLOOD LOSS: Minimal. DRAIN: Hemovac x1. DESCRIPTION OF PROCEDURE: Patient brought to the operative suite and placed in supine position. After successful administration of general anesthesia, well-padded tourniquet placed on the right proximal thigh. Right lower extremity was prepped and draped in usual fashion. Leg was exsanguinated. Tourniquet insufflated to 350 torr. A longitudinal incision was made the superior pole patella and extended distally to the tibia tuberosity anteriorly. The medial arthrotomy was then made and then a medial capsule was elevated off the medial tibial plateau. The ACL, PCL, medial meniscus and lateral meniscus were excised. A drill was entered in the center of distal femur. An intramedullary guide was placed. Distal cutting block was pinned in place, distal cut made with oscillating saw. Marginal osteophytes removed with rongeur. Attention was then directed the tibia. Drill was entered in the center of the tibia. Intramedullary guide was placed. The line was checked with drop mehdi anterior cortex tibia and second ray of the foot and taking 3 mm off the low side the tibia which in this case was laterally, the articular surface tibial plateau was removed oscillating saw. Extension gap was checked and found to be loose medially, tight laterally. We fenestrated the lateral collateral ligament to allow for increase in iliotibial band to allow for increase laxity laterally and then we were able to balance the knee in extension at 16 mm and the knee was therefore set at 25 mm in flexion and then once proper rotation was set the femur was measured to a size 4 and size 4 cutting block was pinned in place. The anterior cuts, chamfer cuts and posterior condylar cuts were made with oscillating saw. The marginal osteophytes removed with rongeur. Box cutting block was pinned in place, box cut made box osteotome and oscillating saw, posterior condyle osteophytes removed the curved osteotome and rongeur. Attention was then directed to the tibia. The tibia sized to a size 5. A size 5 guide was used for the fin punch. The tibial trial, femoral trial and 16 mm articular insert were placed and taken through range of motion. They were found to have excellent alignment, balancing and range of motion. Attention was then directed to the patella. Nine mm of the articular surface patella removed with oscillating saw. The patella sized to size 35, a size 35 guide was used for the PEG holes. Lateral facet was chamfered 30 to 45 degrees. Patella trial was placed taken through range of motion found have subluxation of the patella. Lateral release was performed and the patella tracked normally. All trials were then removed. Knee was copiously irrigated and dried being certain all bone debris was removed. The tibial component, femoral component and patellar component were cemented into place excess cement being removed with a [place]. Once the cement hardened excess cement was again removed osteotome. Knee was again copiously irrigated and dried being certain all bone and cement were removed. The tourniquet was deflated. The hemostasis was obtained with electrocautery. The knee was injected with Exparel including posterior capsule, anterior capsule, medial and lateral collateral ligaments, anterior musculature and subcutaneous tissue and then the knee was again copiously irrigated with normal saline containing irrigant and Vashe irrigation. The Definitive 16 mm articular insert was locked into place and a drain was placed exiting superior laterally and buried in the lateral gutter. The knee was again taken through range of motion, again found to have excellent alignment, balancing, range of motion, patellar tracking. The medial arthrotomy was closed with #1 Vicryl. Skin edge approximated 2-0 Vicryl. Skin was closed with Prineo and a sterile dressing was applied. The patient tolerated the procedure well without complication. At the end the procedure, all counts correct x2. The patient was transferred to the recovery room in stable condition. cc: MD RICHRAD Brito
[2019-05-20] MEDS ORDERED: NS 1,000 ML ONE (13:58)
[2019-05-20] MEDS ORDERED: MORPHINE IV PRN ×3 (14:00)
[2019-05-20] MEDS ORDERED: MILK OF MAGNESIA PO PRN (14:00)
[2019-05-20] MEDS ORDERED: OXY IR PO PRN (14:00)
[2019-05-20] MEDS ORDERED: ZOFRAN ODT PO PRN (14:00)
[2019-05-20] MEDS ORDERED: PNEUMOVAX 23 IM ONE (14:45)
[2019-05-20] MEDS: ULTRAM PO SCH ×2 (17:22→22:17)
[2019-05-20] MEDS: OXY IR PO PRN ×2 (17:58→19:10)
[2019-05-20] MEDS: KEFZOL 1 GM/D5W 1 GM/50 ML IVPB IV SCH (19:57)
[2019-05-20] MEDS: TYLENOL PO SCH (22:17)
[2019-05-20] MEDS: GLUCOPHAGE PO SCH (22:18)
[2019-05-20] MEDS: CELEBREX PO SCH (22:18)
[2019-05-20] MEDS: PERIDEX MT SCH (22:18)
[2019-05-20] MEDS: COLACE PO SCH (22:19)
[2019-05-20] MEDS: PRAVACHOL PO SCH (22:19)
[2019-05-20] MEDS: NEURONTIN PO SCH (22:21)
[2019-05-21] MEDS: KEFZOL 1 GM/D5W 1 GM/50 ML IVPB IV SCH (04:37)
[2019-05-21] MEDS: NS 1,000 ML IV SCH ×3 (04:37→19:44)
[2019-05-21] MEDS: TYLENOL PO SCH ×4 (04:38→22:36)
[2019-05-21] MEDS: ULTRAM PO SCH ×3 (04:38→22:36)
[2019-05-21 06:08] LABS: HEMATOCRIT 34.4 % (37.0-47.0); HEMOGLOBIN 10.9 g/dL (12.0-16.0)
[2019-05-21 07:18] LABS: AGAP 10; BUN 15 mg/dL (8-22); CALCIUM 8.8 mg/dL (8.8-10.2); CHLORIDE 107 mmol/L (98-107); COSMO 280; CREATININE 0.9 mg/dL (0.5-0.9); ESTIMATED GFR > 60; GLUCOSE 129 mg/dL (70-104); POTASSIUM 4.6 mmol/L (3.5-5.1); SODIUM 139 mmol/L (136-145); TCO2 22 mmol/L (25-35)
[2019-05-21] MEDS ORDERED: GLUCOPHAGE PO SCH (08:00)
[2019-05-21] MEDS: ZOFRAN IV PRN ×2 (11:11→19:43)
--- NOTE | 2019-05-21 13:32 | ORTHOPAEDICS PROGRESS NOTE ---
DATE: 05/21/2019 SUBJECTIVE: Neetu Martinez is a 73-year-old female who is postoperative day 1 from a right total knee arthroplasty. She had some history of nausea this morning but otherwise is doing well. OBJECTIVE: She is a well-developed, well-nourished female. She is alert, oriented, and cooperative with the exam. Her wound is clean, dry, and intact without sign of infection. She has good range of motion of her knee. Her vital signs are stable. She is afebrile. She has had minimal output from her drain. She is ambulating well with physical therapy. ASSESSMENT: Stable after right total knee arthroplasty. PLAN: The nurse could not remove her drain and, therefore, I attempted to remove it and it broke inside of her knee. I suspect a fascial suture was caught on the drain. I have discussed this with the patient. Unfortunately, we will need to perform an arthrotomy of her knee with removal of the drain tube. I have discussed with her the risks, benefits, and alternatives of the surgery including, but not limited to bleeding, nerve damage, infection, risk from anesthesia, continued knee pain, up to and including loss of limb, life, and other imponderables. She voices understanding. All questions were answered. No guarantees were given. She requested to proceed as planned. We will schedule surgery this afternoon for removal of the drain tube, foreign body of right knee. cc: Carroll Giles MD
[2019-05-21] MEDS ORDERED: SENSORCAINE 0.5%-EPI 1:200,000 ONE (16:31)
[2019-05-21] MEDS ORDERED: DIPRIVAN 1% ONE (16:32)
[2019-05-21] MEDS ORDERED: XYLOCAINE-MPF 2% ONE (16:34)
[2019-05-21] MEDS ORDERED: KEFZOL 1 GM/D5W 1 GM/50 ML IVPB ONE (16:47)
[2019-05-21] MEDS ORDERED: ZOFRAN ONE (17:06)
[2019-05-21] MEDS: HUMULIN R SUBQ SCH ×2 (17:12→21:00)
[2019-05-21] MEDS: GLUCOPHAGE PO SCH (17:12)
[2019-05-21] MEDS: NORVASC PO SCH (17:13)
[2019-05-21] MEDS: PEPCID PO SCH (17:13)
[2019-05-21] MEDS: PRINIVIL PO SCH (17:13)
[2019-05-21] MEDS: PERIDEX MT SCH ×2 (17:13→22:36)
[2019-05-21] MEDS: NEURONTIN PO SCH ×2 (17:14→22:35)
[2019-05-21] MEDS: CELEBREX PO SCH ×2 (17:14→22:36)
[2019-05-21] MEDS: ASPIRIN PO SCH (17:14)
[2019-05-21] MEDS: DILAUDID ONE ×4 (18:30→18:50)
--- NOTE | 2019-05-21 19:30 | OPERATIVE NOTE ---
PROCEDURE DATE: 05/21/2019 PREOPERATIVE DIAGNOSIS: Retained foreign body right total knee arthroplasty. POSTOP DIAGNOSIS: Retained foreign body right total knee arthroplasty. PROCEDURE: Removal foreign body, right total knee arthroplasty. ANESTHESIA: General. SURGEON: Carroll Giles MD. CLINICAL LAW PROFESSOR: Yuan Guillen. COMPLICATIONS: None. BLOOD LOSS: Minimal. TOURNIQUET TIME: Approximately 30 minutes. DESCRIPTION OF PROCEDURE: Patient brought to the operative suite and placed in supine position. After successful administration of general anesthesia, the Prineo dressing was removed and then the knee was prepped and draped in usual sterile fashion. The superior portion of the incision was opened approximately 2 inches and then 2 of the fascia sutures were removed and the drain tube that was broken was then found intraarticular, it was removed and then the knee was copiously irrigated with normal saline and Vashe irrigation and then was suctioned and then the fascia was closed with #1 Vicryl. The skin edges were again approximated 2-0 Vicryl and then a new Prineo dressing was applied. A sterile dressing was then applied. Tourniquet was deflated. The patient tolerated the procedure well without complications. The end of the procedure all counts correct. The patient was transferred to the recovery room in stable condition. cc: Carroll Giles MD
[2019-05-21] MEDS: PRAVACHOL PO SCH (22:30)
[2019-05-21] MEDS: COLACE PO SCH (22:35)
[2019-05-22] MEDS: COLACE PO SCH ×3 (01:43→22:16)
[2019-05-22] MEDS: NS 1,000 ML IV SCH ×2 (02:21→09:22)
[2019-05-22] MEDS: ULTRAM PO SCH ×2 (04:54→09:21)
[2019-05-22] MEDS: TYLENOL PO SCH ×4 (04:55→22:17)
[2019-05-22 06:22] LABS: HEMATOCRIT 31.9 % (37.0-47.0); HEMOGLOBIN 10.2 g/dL (12.0-16.0)
[2019-05-22] MEDS: HUMULIN R SUBQ SCH ×4 (06:43→22:18)
[2019-05-22] MEDS: ZOFRAN IV PRN (09:16)
[2019-05-22] MEDS: PERIDEX MT SCH ×2 (09:18→22:16)
[2019-05-22] MEDS: CELEBREX PO SCH (09:19)
[2019-05-22] MEDS: ASPIRIN PO SCH (09:19)
[2019-05-22] MEDS: PEPCID PO SCH (09:19)
[2019-05-22] MEDS: NORVASC PO SCH (09:19)
[2019-05-22] MEDS: PRINIVIL PO SCH (09:20)
[2019-05-22] MEDS: GLUCOPHAGE PO SCH ×2 (09:20→18:54)
[2019-05-22] MEDS: NEURONTIN PO SCH ×2 (09:20→22:16)
[2019-05-22] MEDS ORDERED: ULTRAM PO PRN (12:49)
--- NOTE | 2019-05-22 13:42 | ORTHOPAEDICS PROGRESS NOTE ---
DATE: 05/22/2019 SUBJECTIVE: Ms. Martinez is a 73-year-old female with a right total knee arthroplasty and status post removal of foreign body yesterday. She has no complaints other than nausea and she has not really been eating much. She has not had a bowel movement out but she is micturating. She is complaining of nausea and lack of appetite. She is also complaining of a sore throat today. OBJECTIVE: She is a well-developed, well-nourished female. She is alert and cooperative with the exam. She has minimal pain with range of motion of her leg and her leg is neurovascularly intact. ASSESSMENT: Stable right total knee arthroplasty with continued lack of appetite and nausea. PLAN: I am going to discontinue her Celebrex and back off on her Ultram as well. We will try to encourage her to eat and take fluids. We can heplock her IV. The will change her dressing tomorrow and hopefully let her go to home versus rehab tomorrow. We will try to work on her sore throat and a bowel movement today. cc: Carroll Giles MD MTDD
[2019-05-22] MEDS: PRAVACHOL PO SCH (22:16)
[2019-05-23 06:01] LABS: HEMOGLOBIN 9.2 g/dL (12.0-16.0)
[2019-05-23] MEDS ORDERED: FLEET ENEMA PR PRN (08:09)
[2019-05-23] MEDS: HUMULIN R SUBQ SCH ×3 (08:28→15:58)
[2019-05-23] MEDS: TYLENOL PO SCH ×4 (08:29→17:31)
[2019-05-23] MEDS: NS 1,000 ML IV SCH (08:29)
[2019-05-23] MEDS ORDERED: DULCOLAX PR SCH (09:00)
[2019-05-23] MEDS: NEURONTIN PO SCH (11:03)
[2019-05-23] MEDS: PERIDEX MT SCH (11:03)
[2019-05-23] MEDS: ASPIRIN PO SCH (11:04)
[2019-05-23] MEDS: PEPCID PO SCH (11:04)
[2019-05-23] MEDS: COLACE PO SCH (11:04)
[2019-05-23] MEDS: GLUCOPHAGE PO SCH ×2 (11:04→16:43)
[2019-05-23] MEDS: NORVASC PO SCH (11:05)
[2019-05-23] MEDS: PRINIVIL PO SCH (11:05)
[2019-05-23 16:10] VITALS: BP 148/42
--- NOTE | 2019-05-23 20:18 | DISCHARGE SUMMARY ---
ADMISSION DATE: 05/20/2019 DISCHARGE DATE: 05/23/2019 DISCHARGE DIAGNOSES: Right knee degenerative joint disease and right knee retained foreign body status post a right total knee arthroplasty and then reoperation for removal of broken drain tube foreign body in knee. HOME MEDICINES: See discharge med list. DISPOSITION: The patient discharged home with home health physical therapy. Instructed to return for any signs or symptoms of infection or deep venous thrombosis. Instructed to return to see Dr. Giles next . HOSPITAL COURSE: On the day of admission the patient underwent a right total knee arthroplasty. On postop day 1 while attempting to remove her drain it broke into her knee. Therefore, we took her back to the operating room later that day and did a partial arthrotomy to remove the drain tubing without complication. Her postoperative care was otherwise uncomplicated. Her wound is healing nicely without sign of infection. She has good early range of motion of her knee. She is ambulating well with physical therapy. Her hematocrit is stable at 29. Her pain is controlled with p.o. pain medicine. She is discharged to home with home health physical therapy and with follow-up instructions as described above. cc: Carroll Giles MD
== END 2019-05-23 18:03 | disposition home health service (06) ==
LOC: OR 09:11 → 4N 09:11
PROVIDERS: ADMIT Orthopaedic Surgery; ATTEND Orthopaedic Surgery